=== PATIENT | male | born 1955 | race Caucasian/White ===

== ENCOUNTER → 2020-12-02 | Outpatient (CLI) | payer MEDICARE, BC ==
[~2020-12-02] MED LIST: FLOMAX0.4 MG PO; NORCO 7.5-3251 EACH PO; PERCOCET 5/325 T1 EA PO; TORADOL 10 MG T10 MG PO
== END ==
LOC: EXRD 08:31
DX: M79.644 Pain in right finger(s) (principal); M19.041 Primary osteoarthritis, right hand
CPT/HCPCS: 73130; 73140

== ENCOUNTER → 2021-08-25 | Outpatient (CLI) | payer MEDICARE, BC | LOC: EXRD 12:41 | DX: M25.561 Pain in right knee (principal); M17.11 Unilateral primary osteoarthritis, right knee | CPT/HCPCS: 73564 ==